=== PATIENT | male | born 1945 | race Caucasian/White ===

== ENCOUNTER 2024-05-31 14:41 | Emergency (ER) | payer MEDICARE ==
[2024-05-31 15:18] VITALS: RESP 16; TEMP 98.1
--- NOTE | 2024-05-31 15:52 | ED ---
Fall HPI - General Chief Complaint: Fall Stated Complaint: fall Time Seen by Provider: 05/31/24 14:58 Source: patient, EMS, RN notes reviewed Mode of arrival: EMS - History of Present Illness Initial Comments: This is a 78-year-old male with a history of dementia at baseline with A&O X1 who presents emergency department via EMS with a c-collar in place for chief complaint of a fall. HPI was obtained by the patient's family who is at bedside who witnessed the fall. It was reported that the patient was helping to load 2 chairs into the car [place]. Patient reportedly fell backwards and struck the back of his head on the pavement. There was no loss of conscious at this time and patient is not on any blood thinners. Currently patient is denying any active symptoms. family believe last tetanus vaccine was within the last 10 years. - Related Data Allergies Allergy/AdvReac Type Severity Reaction Status Date / Time No Known Allergies Allergy Verified 05/31/24 16:12 Review of Systems ROS Statement: Those systems with pertinent positive or pertinent negative responses have been documented in the HPI. ROS Other: All systems not noted in ROS Statement are negative. Past Medical History Past Medical History: Hypertension History of Any Multi-Drug Resistant Organisms: None Reported Past Psychological History: No Psychological Hx Reported Smoking Status: Former smoker Past Alcohol Use History: Occasional Past Drug Use History: None Reported General Exam Limitations: altered mental status General appearance: alert, in no apparent distress Head exam: Present: other (posterior abrasion and ecchymosis aprox. 2 cm by 3 cm) Eye exam: Present: normal appearance, PERRL, EOMI. Absent: scleral icterus, conjunctival injection, periorbital swelling ENT exam: Present: normal exam, mucous membranes moist Neck exam: Present: normal inspection. Absent: tenderness, meningismus, lymphadenopathy Respiratory exam: Present: normal lung sounds bilaterally. Absent: respiratory distress, wheezes, rales, rhonchi, stridor Cardiovascular Exam: Present: regular rate, normal rhythm, normal heart sounds. Absent: systolic murmur, diastolic murmur, rubs, gallop, clicks GI/Abdominal exam: Present: soft, normal bowel sounds. Absent: distended, tenderness, guarding, rebound, rigid Extremities exam: Present: normal inspection, full ROM, normal capillary refill. Absent: tenderness, pedal edema, joint swelling, calf tenderness Back exam: Present: normal inspection Neurological exam: Present: alert. Absent: oriented X3, CN II-XII intact (unable to assess) Psychiatric exam: Present: normal affect, normal mood Skin exam: Present: warm, dry, intact, normal color. Absent: rash Course Vital Signs 05/31/24 05/31/24 15:09 17:33 Temperature 98.1 F Pulse Rate 63 78 Respiratory 16 16 Rate Blood Pressure 117/65 110/85 O2 Sat by Pulse 96 Oximetry Medical Decision Making - Medical Decision Making Was pt. sent in by a medical professional or institution (, PA, MARBLEIZING MACHINE TENDER, urgent c are, hospital, or assisted...) When possible be specific @ -No Did you speak to anyone other than the patient for history (EMS, parent, family, police, friend...)? What history was obtained from this source @ -I spoke to the patient's family at bedside states that the patient's baseline mentation is A&O X1 and family states that patient is at his normal baseline mentation. Additionally, they deny that the patient uses blood thinners. Did you review nursing and triage notes (agree or disagree)? Why? @ -I reviewed and agree with nursing and triage notes Were old charts reviewed (outside hosp., previous admission, EMS record, old EKG, old radiological studies, urgent care reports/EKG's, assisted records)? Report findings @ -No old charts were reviewed Differential Diagnosis (chest pain, altered mental status, abdominal pain women, abdominal pain men, vaginal bleeding, weakness, fever, dyspnea, syncope, headache, dizziness, GI bleed, back pain, seizure, CVA, palpatations, mental health, musculoskeletal)? @ -fall, abrasion, laceration, intracranial hemorrhage, cervical neck fracutre, this list is not all inclusive EKG interpreted by me (3pts min.). @ -none X-rays interpreted by me (1pt min.). @ -None done CT interpreted by me (1pt min.). @ -CT of the brain and C-spine without contrast reveals mild to moderate ventriculomegaly mild to moderate burden of chronic small vessel ischemic disease, no acute intracranial abnormality noted. CT spine reveals no acute fracture or malalignment. U/S interpreted by me (1pt. min.). @ -None done What testing was considered but not performed or refused? (CT, X-rays, U/S, labs)? Why? @ -None What meds were considered but not given or refused? Why? @ -None Did you discuss the management of the patient with other professionals (professionals i.e. , PA, MARBLEIZING MACHINE TENDER, lab, RT, psych nurse, social media assistant, plastic boat patcher, teacher, financial compliance officer, case resolution specialist)? Give summary @ -No Was smoking cessation discussed for >3mins.? @ -No Was critical care preformed (if so, how long)? @ -No Were there social determinants of health that impacted care today? How? (Homelessness, low income, unemployed, alcoholism, drug addiction, tr ansportation, low edu. Level, literacy, decrease access to med. care, [facility], rehab)? @ -No Was there de-escalation of care discussed even if they declined (Discuss DNR or withdrawal of care, Hospice)? DNR status @ -No What co-morbidities impacted this encounter? (DM, HTN, Smoking, COPD, CAD, Cancer, CVA, ARF, Chemo, Hep., AIDS, mental health diagnosis, sleep apnea, morbid obesity)? @ -None Was patient admitted / discharged? Hospital course, mention meds given and route, prescriptions, significant lab abnormalities, going to OR and other pertinent info. @ -Discharge. 78-year-old with a fall. Patient arrived to the emergency department via EMS with c-collar in place. Patient's baseline mentation is approximately oriented x 1 and. The present history is obtained by family. Patient's family states that patient is at his baseline mentation currently. Unable to complete full neurological assessment due to patient mentation, however there were no acute neurovascular deficits noted on exam. CT of the brain and C-spine negative for acute process. C-collar removed and repeat neck examination completed with no acute findings. There is a small abrasion/hematoma of the posterior scalp that was cleansed with sterile water and mupirocin ointment was applied over top the area. This area was not amenable to suture or staple repair due to size. Recommend that patient use ice in addition to anti-inflammatory such as Tylenol Motrin to aid in symptomatic relief over the next few days. Recommend patient follows up with her primary care provider this week for further evaluation. All questions answered at bedside and strict return. Discussed with the patient's family and they verbalized understanding. Discussed with Dr. Ruiz Undiagnosed new problem with uncertain prognosis? @ -No Drug Therapy requiring intensive monitoring for toxicity (Heparin, Nitro, Insulin, Cardizem)? @ -No Were any procedures done? @ -No Diagnosis/symptom? @ -fall, abrasion Acute, or Chronic, or Acute on Chronic? @ -Acute Uncomplicated (without systemic symptoms) or Complicated (systemic symptoms)? @ -uncomplicated Side effects of treatment? @ -No Exacerbation, Progression, or Severe Exacerbation? @ -No Poses a threat to life or bodily function? How? (Chest pain, [place], [place], pneumonia, PE, COPD, DKA, ARF, appy, cholecystitis, CVA, Diverticulitis, Homicidal, Suicidal, threat to staff... and all critical care pts) @ -No Disposition Clinical Impression: Fall, Head trauma, Abrasion Disposition: HOME SELF-CARE Condition: Good Instructions (If sedation given, give patient instructions): Fall Prevention for Older Adults (ED) Additional Instructions: Return to the emergency department for any new or worsening symptoms. Continue to apply topical antibiotic ointment over areas of open skin 1 time per day. Continue to ice affected area. Recommend follow up with primary care provider this week for further evaluation. Is patient prescribed a controlled substance at d/c from ED?: No Referrals: None,Stated [REFERRING] - 1-2 days Time of Disposition: 17:13
--- NOTE | 2024-05-31 16:10 | CT ---
EXAMINATION TYPE: CT brain glenis [facility]cmanus DATE OF EXAM: 05/31/2024 COMPARISON: None HISTORY: 78 year-old male with confusion, fall, ams CT DLP: 1452.6 mGycm Automated exposure control for dose reduction was used. Technique: Examination of the head was done in axial plane without intravenous contrast. Coronal and sagittal reconstructions performed. CT of the cervical spine was obtained in axial plane without intravenous injection of contrast mater ial. Coronal and sagittal reformatted images were obtained from the axial views for evaluation of f ractures, spinal alignment and canal. FINDINGS: Head: There is no evidence of acute intracranial hemorrhage, acute ischemic changes, mass, mass-effect, or extra-axial fluid collection. There is no effacement of cerebral sulci or basal subarachnoid cister ns. There is no midline shift. Braden-white matter distinction is preserved. There is mild to moderate ventriculomegaly, [place] ratio calculated at 0.37. Moderate patchy white ma tter hypodensities in both cerebral hemispheres including old lacunar infarcts in the basal ganglia. Benign basal ganglia calcification on the right. Mild atelectatic arch calcifications. Some cerumen within the bilateral external auditory canals. Mild mucosal thickening right ethmoid air cells. Orbit and globes are intact. Cervical spine: No craniocervical junction abnormality, predental space widening, or prevertebral soft tissue swellin g. Moderate degenerative disc disease especially C5-T1 levels with narrowed disc space is. There is sugg estion of a right paracentral broad-based disc protrusion at C4-C5 mildly narrowing the spinal canal. Detailed assessment of the spinal canal limited due to CT technique and artifact in the patient's sh oulders. Scattered facet arthropathy especially upper cervical spine on the left. Uncovertebral joint arthropa thy especially mid to lower cervical spine. No acute fractures seen of the cervical spine. Alignment is maintained. Changes result in mild right neuroforaminal stenosis at C4-C5, on the left at C5-C6, and on the right at C6-C7. Sagittal and coronal reformatted images confirm above findings. COMBINED IMPRESSION: 1. Mild to moderate ventriculomegaly probably due to central cerebral atrophy. Correlate to exclude a component of NPH. 2. Mild to moderate burden of chronic small vessel ischemic disease. Old lacunar infarcts of the basa l ganglia. No acute intracranial abnormality seen. 3. Moderate spondylotic change especially C5-T1 levels. No acute fracture or malalignment. Possible s mall posterior disc herniation at C4-C5 mildly narrowing the spinal canal.
[2024-05-31] MEDS: MUPIROCIN 2% OINT 22 GM TUBE TOPICAL STA (17:00)
[2024-05-31] MEDS: DIPH,PERTUS(ACELL)TETVAC-LF 0.5 ML VIAL IM ONE (17:00)
[2024-05-31 17:40] VITALS: BP 110/85; PULSE 78
== END 2024-05-31 17:40 | disposition home or self-care (01) ==
LOC: EC 14:41 → EEVIPCON 14:41 → EC 17:40
DX: S00.93XA Contusion of unspecified part of head, initial encounter (principal); Z87.891 Personal history of nicotine dependence; Z23 Encounter for immunization; W19.XXXA Unspecified fall, initial encounter
CPT/HCPCS: 70450; 72125; 90471; 90715; 99284